=== PATIENT | male | born 1980 | race Native Hawaiian/Other Pacific Islander ===

== ENCOUNTER 2017-10-24 15:32 | Emergency (ER) | payer OTHER ==
[~2017-10-24] VITALS: Ht 177.8 cm; Wt 79.4 kg
[2017-10-24 17:03] VITALS: BP 126/86; TEMP 98.7
== END 2017-10-24 17:04 | disposition home or self-care (01) ==
LOC: ED 15:32
PROC: 0KQQ0ZZ Repair Right Upper Leg Muscle, Open Approach (ICD-10-PCS; principal; 2017-10-24)
DX: S71.111A Laceration without foreign body, right thigh, initial encounter (principal); W26.0XXA Contact with knife, initial encounter; Y92.098 Other place in other non-institutional residence as the place of occurrence of the external cause
CPT/HCPCS: 90471; 90715; 99283; J7040

== ENCOUNTER 2017-11-06 14:35 | Emergency (ER) | payer OTHER ==
[~2017-11-06] VITALS: Ht 177.8 cm; Wt 79.4 kg
[2017-11-06 14:38] VITALS: TEMP 98.9
[2017-11-06 14:58] VITALS: BP 132/84
== END 2017-11-06 14:58 | disposition home or self-care (01) ==
LOC: ED 14:35
DX: Z48.02 Encounter for removal of sutures (principal)